=== PATIENT | male | born 1950 | race Two or more races ===

== ENCOUNTER 2017-12-26 07:09 | Outpatient (CLI) | payer OTHER | END 2017-12-26 07:13 | disposition home or self-care (01) | LOC: SONOGRAMA 07:09 | DX: E04.1 Nontoxic single thyroid nodule (principal) ==

== ENCOUNTER 2019-05-01 07:09 | Outpatient (CLI) | payer OTHER | END 2019-05-01 07:14 | disposition home or self-care (01) | LOC: SONOGRAMA 07:09 | DX: E03.4 Atrophy of thyroid (acquired) (principal) ==

== ENCOUNTER 2019-09-13 07:23 | Outpatient (CLI) | payer OTHER | END 2019-09-13 07:26 | disposition home or self-care (01) | LOC: SONOGRAMA 07:23 | DX: E04.1 Nontoxic single thyroid nodule (principal) ==

== ENCOUNTER → 2020-09-29 | Outpatient (CLI) | payer OTHER | END | disposition home or self-care (01) | LOC: SONOGRAMA 07:54 | PROVIDERS: ATTEND Pathology Anatomic Pathology & Clinical Pathology | DX: E04.1 Nontoxic single thyroid nodule (principal); D34 Benign neoplasm of thyroid gland; E04.8 Other specified nontoxic goiter; E07.89 Other specified disorders of thyroid ==

== ENCOUNTER 2022-02-04 10:08 | Outpatient (CLI) | payer OTHER | END 2022-02-04 10:11 | disposition home or self-care (01) | LOC: SONOGRAMA 10:08 | PROVIDERS: ATTEND Pathology Anatomic Pathology & Clinical Pathology | DX: E04.2 Nontoxic multinodular goiter (principal) ==